=== PATIENT | male | born 1950 | race Caucasian/White ===

== ENCOUNTER → 2016-11-16 | Day surgery (SDC) | payer MEDICARE, MEDICAID ==
[~2016-11-16] VITALS: Ht 175.3 cm; Wt 99.0 kg
[~2016-11-16] MED LIST: BACITRACIN 50,000 UNITS/VIAL ONE; BACITRACIN ZINC 15GM TUBE TOP ONE; BENA20TA3 PO; BENA40TA3 PO; BUPIVACAINE HCL/PF 0.5% (5MG/ML) 10ML ONE; CALCIUM CHLORIDE 1GM/10ML SYR IV ONE; CAPE500T15 PO; CAPECITABINE PO; CHOL100046 PO; CINA30 PO; DILT300T10 PO; DILTIAZEM PO; DOCU-138 PO; Docusate Sodium PO; FOLI0.8T23 PO; GELATIN SPONGE,ABSORBABLE SZ 100 ONE; HEPARIN SODIUM 1,000 UNIT/1ML VIAL IV ONE; HEPARIN SODIUM 1,000 UNIT/1ML VIAL IV SCH; HYDROMORPHONE HCL/PF 2MG/ML CPJ IV PRN; LABETALOL HCL 20MG/4ML CARPUJECT IV PRN; LEVO25TA7 PO; LIDOCAINE HCL 1% 20ML VIAL (Pyxis) INJ ONE; MEPERIDINE HCL/PF 25MG/ML CPJ IV PRN; NEPVIT PO; NOREPINEPHRINE 4MG in DEXT 5% WATER 250ML IV ONE; NORMAL SALINE 0.9% 10 ML SYR ONE; ONDANSETRON HCL 4MG/2ML VIAL IV PRN; SEVE800T8 PO; SODIUM CHLORIDE 0.9% 1,000 ML ONE; SODIUM CHLORIDE 0.9% 250 ML IV ONE; SODIUM CHLORIDE 0.9% 500 ML IV ONE; THROMBIN (BOVINE) 5000 UNITS/VIAL TOP ONE; VIC PO; WARF5TAB73 PO
[2016-11-16 07:55] LABS: BASOPHILS % 0.5 % (0.0-2.0); EOSINOPHILS % 9.4 % (0.0-5.0); HEMATOCRIT. 34.1 % (42.0-52.0); HEMOGLOBIN. 11.4 g/dL (14.0-18.0); LYMPHOCYTES % 23.8 % (20.0-50.0); MEAN CORPUSCULAR HEMOGLOBIN 37.5 pg (28.0-32.0); MEAN CORPUSCULAR VOLUME 111.6 fL (80.0-94.0); MEAN PLATELET VOLUME 6.5 fl (7.4-10.4); MONOCYTES % 7.6 % (2.0-8.0); NEUTROPHILS % 58.7 % (40.0-76.0); PLATELET 201 x1000/uL (130-400); RED BLOOD CELL COUNT 3.05 mill/uL (4.7-6.1); RED CELL DISTRIBUTION WIDTH 18.6 % (11.6-14.6)
[2016-11-16 08:03] LABS: INR 1.1; PARTIAL THROMBOPLASTIN TIME 28.5 sec (23.4-31.0); PROTHROMBIN TIME 11.9 sec (9.4-11.6)
[2016-11-16 21:11] LABS: PLATELET ESTIMATE NORMAL
== END | disposition home or self-care (01) ==
LOC: OR 06:57
PROVIDERS: ATTEND Surgery Vascular Surgery
DX: I82.B12 Acute embolism and thrombosis of left subclavian vein (principal); I48.91 Unspecified atrial fibrillation; E66.3 Overweight; J44.9 Chronic obstructive pulmonary disease, unspecified; I12.0 Hypertensive chronic kidney disease with stage 5 chronic kidney disease or end stage renal disease; N18.6 End stage renal disease; Z99.2 Dependence on renal dialysis
CPT/HCPCS: 36415; 36830; 80048; 85025; 85610; 85730; 93005; A4216; C1757; C1768; J0690; J1100; J1644; J2405; J3490; J7040; P9047; J7030; J7050; J7060

== ENCOUNTER → 2017-01-08 | Outpatient (CLI) | payer MEDICARE, MEDICAID ==
[~2017-01-08] MED LIST changes: -BACITRACIN 50,000 UNITS/VIAL ONE; -BACITRACIN ZINC 15GM TUBE TOP ONE; +BARIUM SULFATE 450ML ORAL SUSP ONE; -BUPIVACAINE HCL/PF 0.5% (5MG/ML) 10ML ONE; -CALCIUM CHLORIDE 1GM/10ML SYR IV ONE; -GELATIN SPONGE,ABSORBABLE SZ 100 ONE; -HEPARIN SODIUM 1,000 UNIT/1ML VIAL IV ONE; -HEPARIN SODIUM 1,000 UNIT/1ML VIAL IV SCH; -HYDROMORPHONE HCL/PF 2MG/ML CPJ IV PRN; +IOHEXOL-300 100 ML BOTTLE ONE; -LABETALOL HCL 20MG/4ML CARPUJECT IV PRN; -LIDOCAINE HCL 1% 20ML VIAL (Pyxis) INJ ONE; -MEPERIDINE HCL/PF 25MG/ML CPJ IV PRN; -NOREPINEPHRINE 4MG in DEXT 5% WATER 250ML IV ONE; -NORMAL SALINE 0.9% 10 ML SYR ONE; -ONDANSETRON HCL 4MG/2ML VIAL IV PRN; -SODIUM CHLORIDE 0.9% 1,000 ML ONE; -SODIUM CHLORIDE 0.9% 250 ML IV ONE; -SODIUM CHLORIDE 0.9% 500 ML IV ONE; -THROMBIN (BOVINE) 5000 UNITS/VIAL TOP ONE
== END | disposition home or self-care (01) ==
LOC: CT 10:26
PROVIDERS: ATTEND Internal Medicine Hematology & Oncology
DX: C18.7 Malignant neoplasm of sigmoid colon (principal); N18.4 Chronic kidney disease, stage 4 (severe); K74.69 Other cirrhosis of liver; I51.7 Cardiomegaly; Q61.3 Polycystic kidney, unspecified; Z85.038 Personal history of other malignant neoplasm of large intestine; Z90.49 Acquired absence of other specified parts of digestive tract
CPT/HCPCS: 71260; 74177; Q9967

== ENCOUNTER 2017-04-02 09:46 | Day surgery (SDC) | payer MEDICARE, MEDICAID ==
[~2017-04-02] VITALS: Ht 175.3 cm; Wt 85.2 kg
[~2017-04-02 09:46] MED LIST changes: -BARIUM SULFATE 450ML ORAL SUSP ONE; -BENA20TA3 PO; -CAPECITABINE PO; -DILTIAZEM PO; -DOCU-138 PO; -IOHEXOL-300 100 ML BOTTLE ONE; -NEPVIT PO
[2017-04-02] MEDS ORDERED: BACITRACIN ZINC 15GM TUBE TOP ONE (10:38)
[2017-04-02] MEDS ORDERED: GELATIN SPONGE,ABSORBABLE SZ 100 ONE (10:38)
[2017-04-02] MEDS ORDERED: THROMBIN (BOVINE) 5000 UNITS/VIAL TOP ONE (10:39)
[2017-04-02] MEDS ORDERED: LIDOCAINE HCL 1% 20ML VIAL (Pyxis) INJ ONE (10:39)
[2017-04-02] MEDS ORDERED: BUPIVACAINE HCL 0.5% (5MG/ML) 50ML ONE (10:40)
[2017-04-02] MEDS ORDERED: BACITRACIN 50,000 UNITS/VIAL ONE (10:40)
[2017-04-02] MEDS ORDERED: PAPAVERINE HCL 30 MG/ML 2ML IV ONE (10:41)
[2017-04-02] MEDS ORDERED: NORMAL SALINE 0.9% 10 ML SYR ONE (10:41)
[2017-04-02] MEDS ORDERED: HEPARIN SODIUM 1,000 UNIT/1ML VIAL IV ONE (10:41)
[2017-04-02 10:43] LABS: INR 1.2; PARTIAL THROMBOPLASTIN TIME 30.7 sec (23.4-31.0); PROTHROMBIN TIME 12.7 sec (9.4-11.6)
[2017-04-02] MEDS ORDERED: SODIUM CHLORIDE 0.9% 500 ML IV ONE ×2 (10:43→11:00)
[2017-04-02] MEDS ORDERED: SODIUM CHLORIDE 0.9% 250 ML IV ONE (10:43)
[2017-04-02 10:46] LABS: BASOPHILS % 1.4 % (0.0-2.0); EOSINOPHILS % 5.6 % (0.0-5.0); HEMATOCRIT. 38.1 % (42.0-52.0); HEMOGLOBIN. 12.8 g/dL (14.0-18.0); LYMPHOCYTES % 18.7 % (20.0-50.0); MEAN CORPUSCULAR HEMOGLOBIN 35.3 pg (28.0-32.0); MEAN CORPUSCULAR VOLUME 105.2 fL (80.0-94.0); MEAN PLATELET VOLUME 6.3 fl (7.4-10.4); MONOCYTES % 7.5 % (2.0-8.0); NEUTROPHILS % 66.8 % (40.0-76.0); PLATELET 279 x1000/uL (130-400); RED BLOOD CELL COUNT 3.62 mill/uL (4.7-6.1); RED CELL DISTRIBUTION WIDTH 16.1 % (11.6-14.6)
[2017-04-02] MEDS ORDERED: BUPIVACAINE HCL/PF 0.5% (5MG/ML) 10ML ONE (11:01)
[2017-04-02] MEDS ORDERED: FENTANYL CITRATE/PF 50MCG/ML 2ML VIAL ONE (12:00)
[2017-04-02] MEDS ORDERED: MIDAZOLAM HCL 2 MG/2 ML VIAL ONE (12:00)
[2017-04-02] MEDS ORDERED: PHENYLEPHRINE HCL 10 MG/ML 1ML (IV VIAL) IV ONE (12:29)
[2017-04-02] MEDS ORDERED: NITROGLYCERIN 0.4MG TABLET SL SL ONE (12:38)
[2017-04-02] MEDS ORDERED: PHENYLEPHRINE IV ONE (12:45)
[2017-04-02] MEDS ORDERED: WATER IV ONE (12:45)
[2017-04-02] MEDS ORDERED: DEXT 5% IV ONE (12:45)
[2017-04-02] MEDS ORDERED: HYDROMORPHONE HCL/PF 2MG/ML CPJ IV PRN (13:00)
[2017-04-02] MEDS ORDERED: ONDANSETRON HCL 4MG/2ML VIAL IV PRN (13:00)
== END 2017-04-02 16:20 | disposition home or self-care (01) ==
LOC: OR 09:46
PROVIDERS: ATTEND Surgery Vascular Surgery
DX: I96 Gangrene, not elsewhere classified (principal); I48.1 Persistent atrial fibrillation; I12.0 Hypertensive chronic kidney disease with stage 5 chronic kidney disease or end stage renal disease; I42.9 Cardiomyopathy, unspecified; N18.6 End stage renal disease; E03.9 Hypothyroidism, unspecified; Z98.890 Other specified postprocedural states; Z79.01 Long term (current) use of anticoagulants; Z99.2 Dependence on renal dialysis
CPT/HCPCS: 36415; 36838; 71045; 80048; 82962; 85025; 85610; 85730; 93005; A4216; C1768; J0690; J1644; J2250; J2370; J2720; J3010; J3490; J7040; J2440; J7050; J7060

== ENCOUNTER 2017-05-10 11:33 | Day surgery (SDC) | payer MEDICARE, MEDICAID ==
[~2017-05-10] VITALS: Ht 175.3 cm; Wt 83.5 kg
[~2017-05-10 11:33] MED LIST changes: +WARF-53 PO; -WARF5TAB73 PO
[2017-05-10] MEDS ORDERED: SODIUM CHLORIDE 0.9% 500 ML IV ONE (12:00)
[2017-05-10 12:25] LABS: BASOPHILS % 0.7 % (0.0-2.0); EOSINOPHILS % 2.5 % (0.0-5.0); HEMATOCRIT. 37.6 % (42.0-52.0); HEMOGLOBIN. 12.5 g/dL (14.0-18.0); LYMPHOCYTES % 14.5 % (20.0-50.0); MEAN CORPUSCULAR VOLUME 99.4 fL (80.0-94.0); MEAN PLATELET VOLUME 6.2 fl (7.4-10.4); MONOCYTES % 5.4 % (2.0-8.0); NEUTROPHILS % 76.9 % (40.0-76.0); PLATELET 258 x1000/uL (130-400); RED BLOOD CELL COUNT 3.78 mill/uL (4.7-6.1); RED CELL DISTRIBUTION WIDTH 14.8 % (11.6-14.6)
[2017-05-10 12:32] LABS: INR 1.7; PARTIAL THROMBOPLASTIN TIME 36.2 sec (23.4-31.0); PROTHROMBIN TIME 18.3 sec (9.4-11.6)
[2017-05-10] MEDS ORDERED: GELATIN SPONGE,ABSORBABLE SZ 100 ONE (13:46)
[2017-05-10] MEDS ORDERED: BACITRACIN ZINC 15GM TUBE TOP ONE (13:47)
[2017-05-10] MEDS ORDERED: HEPARIN SODIUM 1,000 UNIT/1ML VIAL IV ONE (13:47)
[2017-05-10] MEDS ORDERED: THROMBIN (BOVINE) 5000 UNITS/VIAL TOP ONE ×2 (13:47→15:32)
[2017-05-10] MEDS ORDERED: BUPIVACAINE HCL/PF 0.5% (5MG/ML) 10ML ONE ×2 (13:47→16:13)
[2017-05-10] MEDS ORDERED: BACITRACIN 50,000 UNITS/VIAL ONE (13:48)
[2017-05-10] MEDS ORDERED: NORMAL SALINE 0.9% 10 ML SYR ONE (13:48)
[2017-05-10] MEDS ORDERED: LIDOCAINE HCL 1% 20ML VIAL (Pyxis) INJ ONE (13:48)
[2017-05-10] MEDS ORDERED: AMOX-424 PO (14:24)
[2017-05-10] MEDS ORDERED: HEPARIN 5000 UNITS/ML VIAL ONE (15:32)
[2017-05-10] MEDS ORDERED: PROPOFOL 200MG/20ML VIAL IV ONE ×2 (15:43→16:35)
[2017-05-10] MEDS ORDERED: VECURONIUM BROMIDE 10 MG/VIAL IV ONE (15:45)
[2017-05-10] MEDS ORDERED: CEFAZOLIN SODIUM 1000MG/VIAL ONE (15:45)
[2017-05-10] MEDS ORDERED: EPHEDRINE SULFATE 50MG/ML VIAL ONE (15:45)
[2017-05-10] MEDS ORDERED: MIDAZOLAM HCL 2 MG/2 ML VIAL ONE (16:35)
[2017-05-10] MEDS ORDERED: FENTANYL CITRATE/PF 50MCG/ML 2ML VIAL ONE (16:35)
[2017-05-10] MEDS ORDERED: ONDANSETRON HCL 4MG/2ML VIAL ONE (16:41)
[2017-05-10] MEDS ORDERED: DEXAMETHASONE 4MG/ML 1ML VIAL ONE (16:41)
[2017-05-10] MEDS ORDERED: GLYCOPYRROLATE 0.2 MG/ML 2ML VIAL ONE (16:42)
[2017-05-10] MEDS ORDERED: LIDOCAINE HCL/PF 1% 10 MG/ML 5ML VIAL ONE (16:52)
[2017-05-10] MEDS ORDERED: SODIUM CHLORIDE 0.9% 10ML VIAL ONE (16:52)
[2017-05-10] MEDS ORDERED: HYDROMORPHONE HCL/PF 2MG/ML CPJ IV PRN (17:15)
[2017-05-10] MEDS ORDERED: MEPERIDINE HCL/PF 25MG/ML CPJ IV PRN (17:15)
[2017-05-10] MEDS ORDERED: LABETALOL HCL 5MG/ML VIAL 20ML IV PRN (17:15)
[2017-05-10] MEDS ORDERED: ONDANSETRON HCL 4MG/2ML VIAL IV PRN (17:15)
[2017-05-10] MEDS ORDERED: HYDROCODONE/ACETAMINOPHEN 10/325MG TABLET PO SCH (19:15)
[2017-05-10 19:30] VITALS: BP 126/59
[2017-06-15] MEDS ORDERED: WARF-53 PO (01:06)
== END 2017-05-10 19:50 | disposition home or self-care (01) ==
LOC: OR 11:33
PROVIDERS: ATTEND Surgery Vascular Surgery
DX: T82.7XXA Infection and inflammatory reaction due to other cardiac and vascular devices, implants and grafts, initial encounter (principal); I48.91 Unspecified atrial fibrillation; N18.6 End stage renal disease; I25.10 Atherosclerotic heart disease of native coronary artery without angina pectoris; I12.0 Hypertensive chronic kidney disease with stage 5 chronic kidney disease or end stage renal disease; K74.60 Unspecified cirrhosis of liver; Z95.0 Presence of cardiac pacemaker; Z98.890 Other specified postprocedural states; Z85.9 Personal history of malignant neoplasm, unspecified; Z86.73 Personal history of transient ischemic attack (TIA), and cerebral infarction without residual deficits; Z85.038 Personal history of other malignant neoplasm of large intestine
CPT/HCPCS: 35903; 36415; 36830; 80048; 85025; 85610; 85730; 87070; 87075; 87077; 87205; 88304; 93005; A4216; C1768; J0690; J1100; J1644; J2250; J2405; J3010; J3490; J7040; J2704